=== PATIENT | male | born 1975 | race Two or more races ===

== ENCOUNTER 2023-08-29 04:14 | Day surgery (SDC) | payer BC, OTHER ==
[2023-08-19 16:21] VITALS: BMI 26.5
[2023-08-29] MEDS: ceFAZolin SODIUM 1 GM VIAL IVPB ONE
[2023-08-29] MEDS: BUPIVACAINE HCL/PF 0.25% (2.5MG/ML) 10 ML VIAL IJ ONE
[2023-08-29 10:22] VITALS: BP 107/68; PULSE 69; RESP 18; TEMP 97.7
[2023-08-29] MEDS ORDERED: ceFAZolin SODIUM 1 GM VIAL ONE (10:41)
== END 2023-08-29 12:23 | disposition home or self-care (01) ==
LOC: JASU-SURG 04:14
PROVIDERS: ATTEND Surgery
DX: Z53.8 Procedure and treatment not carried out for other reasons (principal)

== ENCOUNTER 2023-10-17 04:07 | Day surgery (SDC) | payer BC, OTHER ==
[2023-09-05 10:08] VITALS: BMI 26.5
[2023-10-17 08:32] VITALS: BP 112/67; PULSE 60; RESP 18; TEMP 97.3
== END 2023-10-17 13:24 | disposition home or self-care (01) ==
LOC: JASU-SURG 04:07
PROVIDERS: ATTEND Surgery
DX: Z53.8 Procedure and treatment not carried out for other reasons (principal)
CPT/HCPCS: 86850; 86900; 86901

== ENCOUNTER 2023-10-18 04:37 | Day surgery (SDC) | payer BC, OTHER ==
[2023-10-17 19:40] VITALS: BMI 26.5
[2023-10-18] MEDS ORDERED: HEPARIN NA (PORCINE) 5,000 UNITS/ML 1ML VIAL ONE (07:08)
[2023-10-18] MEDS ORDERED: cefOXitin SODIUM 2 GM VIAL (RESTRICTED TO ID) IVPB ONE (07:08)
[2023-10-18] MEDS ORDERED: ROCURONIUM BROMIDE 50 MG/5 ML SYRINGE ONE (07:30)
[2023-10-18] MEDS ORDERED: DEXAMETHASONE SOD PHOSPHATE 4 MG/1 ML VIAL ONE (07:30)
[2023-10-18] MEDS ORDERED: PROPOFOL 80 ML ONE (07:30)
[2023-10-18] MEDS ORDERED: LIDOCAINE HCL/PF 2% SDV 5ML VIAL ONE (07:30)
[2023-10-18] MEDS ORDERED: ONDANSETRON 4 MG/2 ML VIAL ONE (07:30)
[2023-10-18] MEDS ORDERED: MIDAZOLAM HCL 2 MG/2 ML SINGLE DOSE VIAL ONE (07:31)
[2023-10-18] MEDS ORDERED: SUCCINYLCHOLINE CHLORIDE 200 MG/10 ML SYRINGE ONE (07:31)
[2023-10-18] MEDS ORDERED: BUPIVACAINE HCL/PF 0.25% (2.5MG/ML) 10 ML VIAL ONE (07:34)
[2023-10-18] MEDS: ceFAZolin SODIUM 1 GM VIAL IVPB ONE (08:21)
[2023-10-18] MEDS: BUPIVACAINE HCL/PF 2.5 MG/ML - 30 ML VIAL IJ ONE (08:24)
[2023-10-18] MEDS ORDERED: SUGAMMADEX SODIUM 200 MG/2 ML VIAL ONE (11:22)
[2023-10-18] MEDS ORDERED: KETOROLAC TROMETHAMINE 30 MG/1 ML VIAL ONE (11:22)
[2023-10-18] MEDS ORDERED: oxyCODONE HCL 5 MG TABLET PO PRN (11:40)
[2023-10-18] MEDS: LACTATED RINGERS SOLUTION 1,000 ML IV SCH (11:40)
[2023-10-18] MEDS ORDERED: ONDANSETRON 4 MG/2 ML VIAL IVPUSH PRN (11:40)
[2023-10-18 13:27] VITALS: RESP 18
[2023-10-18 14:59] VITALS: BP 120/76; PULSE 71; TEMP 97.1
== END 2023-10-18 15:10 | disposition home or self-care (01) ==
LOC: JASU-SURG 04:37
PROVIDERS: ATTEND Surgery
PROC: 0DQV4ZZ Repair Mesentery, Percutaneous Endoscopic Approach (ICD-10-PCS; principal; 2023-10-18 08:00)
DX: K42.0 Umbilical hernia with obstruction, without gangrene (principal); M62.08 Separation of muscle (nontraumatic), other site
CPT/HCPCS: 86850; 86900; 86901; 94760; C1781; J1644